=== PATIENT | female | born 1980 | race Caucasian/White ===

== ENCOUNTER 2024-05-09 16:40 | Emergency (ER) | payer OTHER, SELFPAY ==
--- NOTE | ~2024-05-09 | XR_ITS ---
EXAM: XR ankle LT min 3V DATE: 05/09/2024 17:11 HISTORY: lateral ankle pain . COMPARISON: None available. FINDINGS: Normal mineralization. Transverse fracture at the base the fifth metatarsal with 2 mm dist raction. No lytic or blastic lesion. Joint spaces are maintained. No erosion or periosteal change. Hammer bcutaneous edema of the leg. IMPRESSION: Mildly distracted and fifth metatarsal base avulsion fracture. Reviewed, dictated and finalized at location K.
[2024-05-09 16:53] VITALS: BP 144/94; PULSE 112; RESP 20; TEMP 36.8; O2SAT 99
--- NOTE | 2024-05-09 17:26 | ED.LOWEXIN ---
HPI - Extremity Injury (Lower) General Chief Complaint: Extremity Injury, Lower Stated Complaint: Left Foot Pain Time Seen by Provider: 05/09/24 17:00 Source: patient Mode of arrival: ambulatory Limitations: no limitations History of Present Illness HPI Narrative: 43-year-old female presents with complaint of pain and swelling to left foot. Patient reports yesterday while cleaning her kitchen and she felt a pop and pain to left ankle foot area. Pain worse when ambulatory. Patient states throbbing at rest. Took ibuprofen prior to arrival. Patient concern for fracture. CMS intact. All systems reviewed and negative except as noted above. Related Data Home Medications ?Medication ?Instructions ?Recorded ?Confirmed ?Last Taken ?Type glipizide 5 mg tablet mg 05/09/24 Unknown History lisinopril 20 tablet 05/09/24 Unknown History mg-hydrochlorothiazide 25 mg tablet meloxicam 15 mg tablet mg 05/09/24 Unknown History metformin 500 mg tablet,extended mg PO 05/09/24 Unknown History release 24 hr pantoprazole 40 mg tablet,delayed mg PO 05/09/24 Unknown History release semaglutide 1 mg/dose (4 mg/3 mL) mg subcut 05/09/24 Unknown History subcutaneous pen injector (Ozempic) Allergies Allergy/AdvReac Type Severity Reaction Status Date / Time No Known Allergies Allergy Mild Verified 05/09/24 16:43 Review of Systems Review of Systems: CONSTITUTIONAL: Denies fever, chills, or sweats. EYES: Denies visual changes, redness, or discharge. ENT: Denies rhinorrhea, congestion, sore throat, or otalgia. CARDIOVASCULAR: Denies chest pain, palpitations, or edema. RESPIRATORY: Denies cough or dyspnea. GASTROINTESTINAL: Denies abdominal pain, nausea, vomiting, or diarrhea. GENITOURINARY: Denies dysuria or hematuria. SKIN: Denies rash or itching. MUSCULOSKELETAL: Denies back pain, joint pain, or myalgia. Reports pain and swelling to left foot. NEUROLOGIC: Denies headache, numbness, or weakness. PSYCHIATRIC: Denies anxiety or depression. All other systems reviewed are negative, except as documented in HPI. PMFSH Comments At time of signature, agree with nursing past medical, surgical, social and family history. There is no relevant family history pertinent to the presenting complaint. Exam Narrative: GENERAL: This is a well-nourished, well-developed patient, in no apparent distress. HEAD: normocephalic, atraumatic. EYES: PERRL. Sclera clear/white. Vision is grossly intact. EARS: External ears normal NOSE: External nose normal NECK: Neck supple, non-tender without lymphadenopathy, masses or thyromegaly. CARDIOVASCULAR: Regular rate and rhythm without murmurs, gallops, or rubs. RESPIRATORY: Clear to auscultation. Breath sounds equal bilaterally. No wheezes, rales, or rhonchi. SKIN: warm, Dry, intact with no suspicious lesions or rash, good texture and turgor. NEURO: awake, alert, and oriented to person, place and time. There were no obvious focal neurologic abnormalities. EXTREMITIES: tenderness to lateral aspect L ankle and L foot. mild swelling noted. no deformity. Course Course Level of Care: Express Care Visit Vital Signs Vital signs: Vital Signs Temperature 36.8 C 05/09/24 16:53 Pulse Rate 112 H 05/09/24 16:53 Respiratory Rate 20 05/09/24 16:53 Blood Pressure 144/94 H 05/09/24 16:53 Pulse Oximetry 99 05/09/24 16:53 Oxygen Delivery Room Air 05/09/24 16:53 Temperature 36.8 C 05/09/24 16:53 Pulse Rate 112 H 05/09/24 16:53 Respiratory Rate 20 05/09/24 16:53 Blood Pressure 144/94 H 05/09/24 16:53 Pulse Oximetry 99 05/09/24 16:53 Oxygen Delivery Room Air 05/09/24 16:53 Reviewed MDM - Extremity Injury (Lower) MDM Narrative Medical decision making narrative: x-ray left foot shows fracture to left 5th metatarsal bone. discussed results with pt. referred to orthopedics for follow up. An elida wrap and post op shoe was placed as we do not have post op boots at [facility]. Please be advised this is a medical document. It is intended for [id number] communication. It is written in medical language and may contain unfamiliar abbreviations or verbiage. Medical documents are intended to carry relevant information, facts as evident, and the clinical opinion of the practitioner at the time of the encounter. This report may have been done utilizing a voice recognition system. Attempts have been made to correct errors. However, there may be uncorrected grammatical, spelling, and recognition errors present. The file time of this note does not necessarily represent the time of service. Imaging Data My impression: agree with radiologist Radiologist's impression: EXAM: XR ankle LT min 3V DATE: 05/09/2024 17:11 HISTORY: lateral ankle pain . COMPARISON: None available. FINDINGS: Normal mineralization. Transverse fracture at the base the fifth metatarsal with 2 mm distraction. No lytic or blastic lesion. Joint spaces are maintained. No erosion or periosteal change. Subcutaneous edema of the leg. IMPRESSION: Mildly distracted and fifth metatarsal base avulsion fracture. Discharge Plan Discharge Clinical Impression: Fracture of fifth metatarsal bone of left foot Qualifiers: Encounter type: initial encounter Fracture type: closed Patient Disposition: Home, Self-Care Condition: Stable Instructions: Foot Fracture in Adults (ED) Additional Instructions: the x-ray of your left foot showed a fracture to your 5th metatarsal bone. Take ibuprofen or Tylenol every 6-8 hours as needed for pain. Elevate when at rest. Apply ice as needed for pain. Call tomorrow and schedule a follow-up appointment with international trade specialist. Patient Language: Hungarian Prescriptions: No Action meloxicam 15 mg tablet pantoprazole 40 mg tablet,delayed release (DR/EC) PO lisinopril-hydrochlorothiazide 20-25 mg tablet metformin 500 mg tablet extended release 24 hr PO glipizide 5 mg tablet Ozempic 1 mg/dose (4 mg/3 mL) pen injector SUBCUT Follow-up/Referrals: PHYSICIAN,[employer]GET[employer] WORKER [Primary Care Provider] - Eran Andrade MD [Physician] - (follow up with international trade specialist) Stand Alone Forms: Work/School Release IP Time of Disposition: 17:37
== END 2024-05-09 17:40 | disposition home or self-care (01) ==
PROVIDERS: Emergency Provider Nurse Practitioner Family
DX: S92.352A Displaced fracture of fifth metatarsal bone, left foot, initial encounter for closed fracture (principal); X58.XXXA Exposure to other specified factors, initial encounter; Y93.E9 Activity, other interior property and clothing maintenance; E78.00 Pure hypercholesterolemia, unspecified; I10 Essential (primary) hypertension; K21.9 Gastro-esophageal reflux disease without esophagitis; E11.9 Type 2 diabetes mellitus without complications
CPT/HCPCS: 73610; 99204; G0463